=== PATIENT | female | born 1940 | race Caucasian/White ===

== ENCOUNTER 2018-02-09 17:09 | Emergency (ER) | payer MEDICARE, OTHER ==
[~2018-02-09] VITALS: Ht 160 cm; Wt 82.0 kg
[2018-02-09] MEDS ORDERED: LIDOcaine 1.5% w/epinephrine 1:200,000 5ml ampul IJ ONE (17:40)
[2018-02-09] MEDS ORDERED: TETanus/Pertussis (Acell)/Diphther VAC/PF (Tdap-Adult) 0.5ml syringe IM ONE (17:40)
[2018-02-09] MEDS ORDERED: AMOX-580 PO (19:52)
[2018-02-09] MEDS ORDERED: HYDR-3965 PO (19:52)
[2018-02-09 19:56] VITALS: BP 165/75
== END 2018-02-09 19:58 | disposition home or self-care (01) ==
LOC: ER 17:09
DX: S81.812A Laceration without foreign body, left lower leg, initial encounter (principal); Z88.1 Allergy status to other antibiotic agents; Z86.718 Personal history of other venous thrombosis and embolism; W26.8XXA Contact with other sharp object(s), not elsewhere classified, initial encounter; Y93.89 Activity, other specified; Y92.89 Other specified places as the place of occurrence of the external cause; Y99.8 Other external cause status
CPT/HCPCS: 12007; 73590; 90471; 90715; 99284; A6258; A6449; J3490